=== PATIENT | female | born 1975 | race Caucasian/White ===

== ENCOUNTER → 2024-06-17 | Outpatient (CLI) | payer BC, SELFPAY ==
--- NOTE | 2024-06-17 10:52 | US_ITS ---
STUDY: ULTRASOUND OF THE FEMALE PELVIS - COMPLETE REASON FOR EXAM: Female, 48 years old. EVALUATE LESION ON LEFT CERVIX -- COMPARE TO CT [place] Apr LMP: Unknown. TECHNIQUE: Transvaginal TECHNICAL QUALITY: Adequate. COMPARISON: None. FINDINGS: The uterus is anteverted and is in a midline position. The uterus measures 5.5 cm x 3.9 cm x 3.2 cm. There are 2 nabothian cysts of the cervix. The endometrium measures 2.8 mm in thickness, and is hyperechoic. There is no demonstrated endometrial mass. Heterogeneous appearance of the myometrium in keeping with fibroid change. I.U.D. - The patient does not have an I.U.D. The right ovary is visualized. The right ovary measures 2.3 cm x 2.1 cm x 1.5 cm. There is no right ovarian cyst or ovarian mass. There is no visualized right adnexal mass or complex lesion. There is normal arterial and normal venous vascularity. The left ovary is visualized. The left ovary measures 1.8 cm x 1.2 cm x 1.2 cm. There is no left ovarian cyst or ovarian mass. There is no visualized left adnexal mass or complex lesion. There is normal arterial and normal venous vascularity. There is no fluid in the cul-de-sac. US/Transvaginal Non- IMPRESSION: Fibroid change of the uterus. There are 2 nabothian cysts in the uterine cervix the larger measures 1.9 cm x 1.8 cm x 1.7 cm Electronically Signed: Fadi Edwards MD at 12:16 EST ,
== END | disposition home or self-care (01) ==
PROVIDERS: Referring Provider Internal Medicine Hematology & Oncology; Visit Provider Internal Medicine Hematology & Oncology
DX: C50.411 Malignant neoplasm of upper-outer quadrant of right female breast (principal); N88.9 Noninflammatory disorder of cervix uteri, unspecified; Z17.0 Estrogen receptor positive status [ER+]
CPT/HCPCS: 76830

== ENCOUNTER → 2024-06-23 | Outpatient (CLI) | payer BC, SELFPAY ==
[2024-06-30 20:07] LABS: HPV APTIMA, High Risk Positive (Negative); HPV Genotype 16, Aptima Negative (Negative); HPV Genotype 18,45 Aptima Negative (Negative)
== END | disposition home or self-care (01) ==
LOC: BWCLAB 10:29
PROVIDERS: Referring Provider Obstetrics & Gynecology; Visit Provider Obstetrics & Gynecology
DX: Z12.4 Encounter for screening for malignant neoplasm of cervix (principal)
CPT/HCPCS: 87624; 88175; G0145

== ENCOUNTER → 2024-07-01 | Outpatient (CLI) | payer BC, SELFPAY ==
--- NOTE | 2024-07-01 09:17 | CT_ITS ---
INDICATION: HISTORY OF LUNG NODULE -- PLEASE COMPARE TO CT DONE AT [facility] ON 04/22/2024 EXAMINATION: CT CHEST WITH CONTRAST - CT Chest W/ Contrast Injection TECHNIQUE: Helically acquired images were obtained of the chest following IV contrast. A radiation dose optimization technique was used for this scan. IV Contrast dosage and agent: COMPARISON: 04/22/2024 FINDINGS: LUNGS, PLEURA AND LARGE AIRWAYS: No masses, consolidation, or edema. No pleural effusion or thickening. No pneumothorax. THYROID: No thyroid lesions. HEART AND PERICARDIUM: Heart size is normal. No pericardial effusion. VESSELS: Thoracic aorta is not dilated. No aortic dissection. No obvious central pulmonary embolism although this study was not performed with the pulmonary embolism protocol. MEDIASTINUM AND IDRIS: No mediastinal or hilar adenopathy. Esophagus is unremarkable. No hiatal hernia. UPPER ABDOMEN: No acute pathology. BONES: No suspicious lytic or blastic abnormality. CT/Chest WITH Contrast IMPRESSION: Negative contrast enhanced CT of the chest. Electronically Signed: Grover Magaña MD at 11:14 EST ,
== END | disposition home or self-care (01) ==
PROVIDERS: Referring Provider Internal Medicine Hematology & Oncology; Visit Provider Internal Medicine Hematology & Oncology
DX: R91.1 Solitary pulmonary nodule (principal)
CPT/HCPCS: 71260; Q9967

== ENCOUNTER → 2024-09-22 | Outpatient (CLI) | payer BC, SELFPAY ==
--- NOTE | 2024-09-22 13:00 | RAD_ITS ---
PROCEDURE: CHEST PA AND LATERAL 09/22/2024 REASON FOR EXAM: COUGH TECHNIQUE: Frontal and lateral views of the chest. COMPARISON: Lead Simulation Modeling Engineer from the chest CT of 07/01/2024. RAD/Chest PA and Lateral IMPRESSION: Left subclavian central venous catheter with port seen, with tip projecting ove r the SVC. No pleural effusion or pneumothorax is noted. Lungs appear clear of acute disease. The cardiomediastinal silhouette is within the normal range. No acute osseous change is seen. Reading Location: [id number]
== END | disposition home or self-care (01) ==
LOC: RAD 12:59
PROVIDERS: Referring Provider Nurse Practitioner Family; Visit Provider Nurse Practitioner Family
DX: R05.9 Cough, unspecified (principal)
CPT/HCPCS: 71046

== ENCOUNTER → 2024-09-29 | Outpatient (CLI) | payer BC, SELFPAY ==
--- NOTE | 2024-09-29 16:15 | CER_PTH ---
PATIENT: MELVA MAHAN [facility] U#:[id number] AGE/SX: 49/F ROOM: RE09/29/[address]: Dr. Melva Kidd DO : 1975 BED: DIS: 09/29/2024 SPEC #: [id number] RECD: 09/30/24 10:17 STATUS: ROSINA FORDE #: [id number] STACEY: 09/29/24 16:[address]: Melva Kidd DEPT: SURGICAL PATHOLOGY RECD BY: Nathaniel Dickerson ENTERED: 09/30/24 10:18 SP TYPE: CERV OTHR DR: Dr. Caio Moncada, DO Tissues: A - Endocervical B - Uterine cervix, NOS Procedures: Surgery Specimen Level IV HEADER OPERATION: Colposcopy PRE-OP DIAGNOSIS: HPV+ TISSUE SUBMITTED: A- ECC, B- 12o'clock MICROSCOPIC DIAGNOSIS A. ENDOCERVIX, CURETTAGE: - LOW GRADE RAMIN (MILD DYSPLASIA WITH HPV-CYTOPATHIC EFECT, DALJIT 1). B. CERVIX 12 O'CLOCK, BIOPSY: - LOW GRADE RAMIN (MILD DYSPLASIA WITH HPV-CYTOPATHIC EFECT, DALJIT 1). MICROSCOPIC DESCRIPTION Slides are reviewed. GROSS DESCRIPTION Specimen A-received in formalin labeled, Melva Mahan, and designated ECC, is a scant amount of chakraborty tissue and red-brown mucus that aggregate to 0.6 x 0.6 x 0.2 cm. Tissue submitted entirely for cell block preparation in one cassette. Specimen B-received in formalin labeled, Melva Mahan, and designated 12 o'clock, is a chakraborty smooth irregularly-shaped soft tissue fragment and two wisps of tissue that aggregate to 0.6 x 0.5 x 0.2 cm. Totally submitted in one cassette. [place] 09/30/2024 CPT:11999d0
== END | disposition home or self-care (01) ==
LOC: LABSPEC 16:52
PROVIDERS: Visit Provider Obstetrics & Gynecology
DX: R87.810 Cervical high risk human papillomavirus (HPV) DNA test positive (principal)
CPT/HCPCS: 88305

== ENCOUNTER → 2024-11-06 | Outpatient (CLI) | payer BC, SELFPAY ==
--- NOTE | 2024-11-06 08:30 | BD_ITS ---
PROCEDURE: DEXA BONE DENSITY STUDY 11/06/2024 REASON FOR EXAM: SCREENING FOR OSTEOPOROSIS F, age 49 y/o . TECHNIQUE: DEXA scan of sites with data reported below. Scanner utilized: [employer]. REFERENCE LINKS: ISCD Adult Positions COMPARISON: None FINDINGS: BMD and T-SCORES Lumbar spine: 1.136 g/cm2, T-score 0.8 Levels: L1 through L4 Left femoral neck: 0.738 g/cm2, T-score -1.0 Left total hip: 1.118 g/cm2, T-score 1.4 Right femoral neck: 0.709 g/cm2, T-score -1.3 Right total hip: 1.058 g/cm2, T-score 0.9 The World Health Organization has defined the following categories based on bone density: Normal bone density: T-score equal to or greater than -1.0 Osteopenia: T-score between -1.0 and -2.5 Osteoporosis: T-score equal to or less than -2.5 FRAX (or Comparable) Fracture Risk Assessment: 10 Year Probability of Fracture: Major Osteoporotic Fracture: 3.5% Hip Fracture: 0.3% (Note: FRAX is not to be reported in setting of normal range bone density, osteoporosis on DEXA, known history of osteoporosis, prior osteoporotic hip or vertebral fracture, or for any patient undergoing pharmacological treatment for bone loss.) The National Osteoporosis Foundation (NOF) recommends pharmacological treatment for patients with a FRAX 10-year risk of 3% or higher for a hip fracture, or 20% or higher for a major osteoporotic fracture, to prevent osteoporosis and reduce fracture risk. The patient does not meet the pharmacological treatment recommendations for prevention of osteoporosis. BD/Dexa Bone Density Study IMPRESSION: OSTEOPENIA. Recommend follow-up as clinically warranted. Reading Location: [id number]
== END | disposition home or self-care (01) ==
LOC: OPBD 08:18
PROVIDERS: Referring Provider Nurse Practitioner Family; Visit Provider Nurse Practitioner Family
DX: C50.411 Malignant neoplasm of upper-outer quadrant of right female breast (principal); Z17.0 Estrogen receptor positive status [ER+]
CPT/HCPCS: 77080

== ENCOUNTER 2024-12-02 11:27 | Day surgery (SDC) | payer BC, SELFPAY ==
--- NOTE | 2024-11-25 12:29 | EKG12_ITS ---
Test Reason : PREOP Blood Pressure : */* mmHG Vent. Rate : 79 BPM Atrial Rate : 79 BPM P-R Int : 126 ms QRS Dur : 88 ms QT Int : 362 ms P-R-T Axes : 53 92 16 degrees QTcB Int : 415 ms Normal sinus rhythm Rightward axis Nonspecific T wave abnormality Abnormal ECG Confirmed by GRETA LEVINE, RAMU ([id number]), web editor RICHIE CHACON ([id number]) on 11/26/2024 6:04:04 AM Referred By: Melanie Kidd Confirmed By: RAMU HERNANDES MD
[2024-11-25 13:48] LABS: Hematocrit 37.5 % (37-47); Hemoglobin 12.8 g/dL (12.0-15.0); Mean Corp Hgb Conc 34.1 g/dL (32-36); Mean Corpuscular Hgb 29.8 pg (27.0-32.0); Mean Corpuscular Volume 87.4 fL (81-99); Mean Platelet Vol. 8.5 fl (6.2-12.0); Platelet Count 229 K/mm3 (150-450); RBC Distribution Width CV 12.5 % (11.6-14.6); RBC Distribution Width SD 39.5 fl (35.1-43.9); Red Blood Count 4.29 M/mm3 (4.2-5.4); White Blood Count 3.9 K/mm3 (4.4-11.0)
[2024-11-25 14:00] LABS: ALB/GLOB Ratio 1.6 RATIO (0.9-2.4); AST(SGOT) 22 U/L (<=31); Alanine Aminotransfer ALT/SGPT 16 U/L (<=34); Albumin, Serum 4.1 g/dL (3.5-5.0); Alkaline Phosphatase 92 U/L (35-104); Anion Gap 12 (5-15); BUN 13 mg/dL (4-19); BUN/Creat Ratio 13.6 RATIO (10-20); Calcium,Total 9.4 mg/dL (7.6-11.0); Carbon Dioxide 23.1 mmol/L (21.0-32.0); Chloride 104 mmol/L (98-108); Creatinine, Serum 0.93 mg/dL (0.70-1.20); EST Glomerular Filtration Rate 75 (>60); Globulin 2.6 g/dL (2.2-4.2); Glucose 126 mg/dL (70-99); Potassium 4.2 mmol/L (3.3-5.1); Protein, Total 6.7 g/dL (5.9-8.4); Sodium Level 139 mmol/L (133-145); Total Bilirubin 0.19 mg/dL (0.00-1.30)
--- NOTE | 2024-11-26 08:57 | PAT.ANE_ITS ---
Pre-Assessment Diagnosis/Proposed Procedure Planned Operative Procedure(s): Laparoscopic, Salpingo-oopherectomy Anesthesia History Anesthesia History - production support engineer: Anesthesia History - production support engineer Hx Hospitalization No 11/18/24 09:54 Any Problems With Anesthesia No 11/18/24 09:54 Cholinesterase deficiency No 11/18/24 09:54 You/Your Family Experience No 11/18/24 09:54 fever (hyperthermia) with Relationship Recent Exposure to Contagious Disease Does patient have nerve No 11/18/24 09:54 stimulator Patient instructed to have device shut off --Does patient have Pacemaker or ICD? When Was Last Pacemaker Check QUESTION #4 FULL TEXT: You/Your Family Experience fever (hyperthermia) with Anesthesia Last Oral Intake Last Oral intake: Last Oral Intake NPO since Meds taken in AM with sips of water? Meds patient instructed to take am of surgery PONV PONV - production support engineer: PONV - production support engineer Female Yes 11/18/24 09:54 HX of Motion Sickness No 11/18/24 09:54 HX of N/V After Surgery No 11/18/24 09:54 Non-Smoker No 11/18/24 09:54 Duration of Surgery greater No 11/18/24 09:54 than 60 minutes Number of Risk Factors 1 11/18/24 09:54 PONV Score Low Risk 11/18/24 09:54 Height & Weight Height & Weight: Anesthesia: Height & Weight Height 5 ft 7 in 09/29/24 15:57 Respiratory Assessment Respiratory Assessment - production support engineer: Respiratory Tract Infection Hx - production support engineer Hx Respiratory Tract Infection No 11/18/24 09:54 STOP Sleep Apnea STOP Sleep Apnea - production support engineer: STOP Sleep Apnea - production support engineer Hx Hypertension No 11/18/24 09:54 Hx Sleep Apnea No 11/18/24 09:54 CPAP BIPAP Do you snore loudly (louder No 11/18/24 09:54 than talking or can be heard Do you often feel tired/ No 11/18/24 09:54 fatigued/ sleepy during daytime? Has anyone observed you stop No 11/18/24 09:54 breathing during sleep? STOP Results Negative 11/18/24 09:54 QUESTION #5 FULL TEXT : Do you snore loudly (louder than talking or can be heard through closed doors)? Tobacco Use History Tobacco Use History - production support engineer: Tobacco Use History - production support engineer Tobacco Use Smoking Status Former smoker 11/18/24 09:54 Hx Tobacco Use Yes 11/18/24 09:54 Years Smoking Packs Smoked per Day Smoking Cessation Date was Yes - quit smoking within 15 11/18/24 09:54 within the last 15 years years Hx Smoking Cessation Date Hx Smoking Cessation Counseling Hematologic Medial History Hematologic Hx - production support engineer: Hematologic Medical Hx - physical security manager Hx of Blood Transfusion No 11/18/24 09:54 Hx of Transfusion in last 3 No 11/18/24 09:54 Months Date of Last Transfusion (if within last 3 months) Ever experience any problems No 11/18/24 09:54 with transfusion(s)? Specify any problems Hx of Preganancy in last 3 No 11/18/24 09:54 Months Nurse Filling Out Transfusion [facility] 11/18/24 09:54 & Questions: Date: 11/18/24 11/18/24 09:54 Time: 10:04 11/18/24 09:54 Patient unable to answer at this time (ie. confused, unrespo /Reproduction History /Reproductive History - production support engineer: /Reproductive Hx- production support engineer Hx Now No 11/18/24 09:54 Gestational Age (in weeks): EDC: Hx Hx Para Hx Section SAB No 09/29/24 16:01 PFSH Medical History Wears glasses Cancer Discoloration of skin History of IBS Gastric reflux Former smoker History of echocardiogram History of stress test Post-menopausal Cough Encounter for chemotherapy management Diarrhea due to drug Anemia CINV (chemotherapy-induced nausea and vomiting) Encounter for education Leukopenia Sprain of right foot Sleep walking Restless leg IBS (irritable bowel syndrome) Hyperglycemia Hypersomnia Gestational diabetes HPV in female COVID DVT (deep venous thrombosis) Depression Anxiety Breast cancer Home Medications ?Medication ?Instructions ?Recorded ?Last Taken ?Type aspirin 81 mg tablet,delayed 81 mg PO QHS 03/28/24 Unk nown History release bupropion HCl 150 mg tablet,12 hr 150 mg PO QHS Unknown History sustained-release ibuprofen 200 mg capsule 200 mg PO Q6H PRN pain 03/28 Unknown History sertraline 50 mg tablet 50 mg PO QHS 03/28/24 Unknow n History gabapentin 300 mg capsule 300 mg PO QHS #90 caps 06/23 Unknown Rx lidocaine-prilocaine 2.5 %-2.5 % 1 applic topical ONCE PRN port 06/30/24 Unknown Rx topical cream access 30 days #30 grams ondansetron 8 mg disintegrating 8 mg PO Q8H PRN nausea and 06/30/24 Unknown Rx tablet vomiting #30 tabs prochlorperazine maleate 10 mg 10 mg PO Q6H PRN nausea and 06/30/24 Unknown Rx tablet vomiting #30 tabs omeprazole magnesium 20 mg 20 mg PO QDAY PRN indigesti on 11/18/24 Unknown History tablet,delayed release (Prilosec OTC) Allergy/AdvReac Type Severity Reaction Status Date / Time ketorolac (From Toradol) AdvReac Mild Nausea Verified 11/25/24 13:07 Family History Aunt Breast cancer Grandmother Breast cancer Son Cerebral palsy Surgical History History of lumpectomy History of left ventricular assist device (LVAD) History of cervical biopsy Social History household members: significant other and children number of children: 1 current occupational status: employed 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 - Tuan Audit: Pertinent Findings Pertinent Findings EKG Perinent findings: 11/25/2024. Normal sinus rhythm 79 bpm. Nonspecific T wave abnormality. Recommendation Anesthesia Recommendation Anesthesia recommendation: OPTIMIZED for anesthesia
[2024-12-02] VITALS (10 sets, daily range): BP systolic 121–136; BP diastolic 66–76; PULSE 60–71; RESP 16; TEMP 36.2–36.4; O2SAT 96–100; BMI 42.3
[2024-12-02] MEDS: Lactated Ringers 1,000 ML 40 ML IV (12:13)
[2024-12-02] MEDS: Enoxaparin 40 MG/0.4 ML Syringe SC (12:14)
[2024-12-02] MEDS: Acetaminophen 500 MG Tablet 1000 MG PO (12:14)
[2024-12-02] MEDS: Gabapentin 600 MG Tablet PO (12:37)
--- NOTE | 2024-12-02 12:37 | PRE.ANES_ITS ---
ASA Classification* ASA Classification ASA Classification: 3 Assessment & Plan Anesthesia* Anesthesia Assessment Anesthesia Assessment: Discussed sedation and/or anesthesia options, risks, benefits, and alternatives with patient/parents/legal guardian/POA. Questions invited. The patient/parents/legal guardian/POA seems to understand and agrees to proceed with anesthesia plan. Reviewed the physical assessment, medical history, allergy history and patient home medications list prior to surgery/procedure/anesthetic and documented any changes. Performed airway and anesthesia risk assessments. Anesthesia Type Anesthesia Type: General History Source History Obtained from:: Patient and Chart Anesthesia Focused Assessment* Temperature: 97.6 F Pulse Rate: 71 Blood Pressure: 122/69 Respiratory Rate: 16 Pulse Ox: 96 Oxygen Delivery Method: Room Air Airway Assessment Mouth opens: >3 cm Mallampati Score: III Teeth Condition: Loose (Patient has a loose #27 tooth.) and Missing (Missing a left upper molar.) Neck Range of motion (ROM): Full ROM Focused Labs Anesthesia Preop lab: CBC WBC 3.9 K/mm3 (4.4-11.0) L 11/25/24 13:32 11/25/24 RBC 4.29 M/mm3 (4.2-5.4) 11/25/24 13:32 11/25/24 Hgb 12.8 g/dL (12.0-15.0) 11/25/24 13:32 11/25/24 Hct 37.5 % (37-47) 11/25/24 13:32 11/25/24 Plt Count 229 K/mm3 (150-450) 11/25/24 13:32 11/25/24 CHEMISTRY Potassium 4.2 mmol/L (3.3-5.1) 11/25/24 13:32 11/25/24 Sodium 139 mmol/L (133-145) 11/25/24 13:32 11/25/24 Magnesium 2.0 mg/dL (1.5-2.2) 09/22/24 10:30 09/22/24 Phosphorus 3.4 mg/dL (2.7-4.5) 09/08/24 07:45 09/08/24 BUN 13 mg/dL (4-19) 11/25/24 13:32 11/25/24 Creatinine 0.93 mg/dL (0.70-1.20) 11/25/24 13:32 11/25/24 Glucose 126 mg/dL (70-99) H 11/25/24 13:32 11/25/24 COAG Pre-Assessment Diagnosis/Proposed Procedure Planned Operative Procedure(s): Laparoscopic, Salpingo-oopherectomy Anesthesia History Anesthesia History - public finance specialist: Anesthesia History - public finance specialist Hx Hospitalization No 11/18/24 09:54 Any Problems With Anesthesia No 11/18/24 09:54 Cholinesterase deficiency No 11/18/24 09:54 You/Your Family Experience No 11/18/24 09:54 fever (hyperthermia) with Relationship Recent Exposure to Contagious No 12/02/24 12:16 Disease Does patient have nerve No 11/18/24 09:54 stimulator Patient instructed to have device shut off --Does patient have Pacemaker No 12/02/24 12:16 or ICD? When Was Last Pacemaker Check QUESTION #4 FULL TEXT: You/Your Family Experience fever (hyperthermia) with Anesthesia Last Oral Intake Last Oral intake: Last Oral Intake NPO since 21:00 12/02/24 12:16 Meds taken in AM with sips of No 12/02/24 12:16 water? Meds patient instructed to take am of surgery PONV PONV - public finance specialist: PONV - public finance specialist Female Yes 11/18/24 09:54 HX of Motion Sickness No 11/18/24 09:54 HX of N/V After Surgery No 11/18/24 09:54 Non-Smoker No 11/18/24 09:54 Duration of Surgery greater No 11/18/24 09:54 than 60 minutes Number of Risk Factors 1 11/18/24 09:54 PONV Score Low Risk 11/18/24 09:54 Height & Weight Height & Weight: Anesthesia: Height & Weight Height 5 ft 7 in 12/02/24 12:16 Weight: 122.5 kg 12/02/24 12:16 Body Mass Index (BMI) 42.3 12/02/24 12:16 Respiratory Assessment Respiratory Assessment - public finance specialist: Respiratory Tract Infection Hx - public finance specialist Hx Respiratory Tract Infection No 11/18/24 09:54 STOP Sleep Apnea STOP Sleep Apnea - public finance specialist: STOP Sleep Apnea - public finance specialist Hx Hypertension No 11/18/24 09:54 Hx Sleep Apnea No 11/18/24 09:54 CPAP BIPAP Do you snore loudly (louder No 11/18/24 09:54 than talking or can be heard Do you often feel tired/ No 11/18/24 09:54 fatigued/ sleepy during daytime? Has anyone observed you stop No 11/18/24 09:54 breathing during sleep? STOP Results Negative 11/18/24 09:54 QUESTION #5 FULL TEXT : Do you snore loudly (louder than talking or can be heard through closed doors)? Tobacco Use History Tobacco Use History - public finance specialist: Tobacco Use History - public finance specialist Tobacco Use Smoking Status Former smoker 11/18/24 09:54 Hx Tobacco Use Yes 11/18/24 09:54 Years Smoking Packs Smoked per Day Smoking Cessation Date was Yes - quit smoking within 15 11/18/24 09:54 within the last 15 years years Hx Smoking Cessation Date Hx Smoking Cessation Counseling Hematologic Medial History Hematologic Hx - public finance specialist: Hematologic Medical Hx - presentation manager Hx of Blood Transfusion No 11/18/24 09:54 Hx of Transfusion in last 3 No 11/18/24 09:54 Months Date of Last Transfusion (if within last 3 months) Ever experience any problems No 11/18/24 09:54 with transfusion(s)? Specify any problems Hx of Preganancy in last 3 No 11/18/24 09:54 Months Nurse Filling Out Transfusion [facility] 11/18/24 09:54 & Questions: Date: 11/18/24 11/18/24 09:54 Time: 10:04 11/18/24 09:54 Patient unable to answer at this time (ie. confused, unrespo /Reproduction History /Reproductive History - public finance specialist: /Reproductive Hx- public finance specialist Hx Now No 11/18/24 09:54 Gestational Age (in weeks): EDC: Hx Hx Para Hx Section SAB No 11/17/24 15:23 Active Medications Active Medications: Current Medications Generic Name Dose Route Start Last Admin Trade Name Freq PRN Reason Stop Dose Admin Acetaminophen 1,000 mg 12/02/24 12:55 12/02/24 12:14 Acetaminophen 500 Mg Tablet PO 12/02/24 12:56 1,000 mg PREOP ONE Administration Enoxaparin Sodium 40 mg 12/02/24 12:55 12/02/24 12:14 Enoxaparin 40 Mg/0.4 Ml Syringe SC 12/02/24 12:56 40 mg PREOP ONE Administration Gabapentin 600 mg 12/02/24 12:55 Gabapentin 600 Mg Tablet PO 12/02/24 12:56 PREOP ONE Lactated Ringer's 1,000 mls @ 40 mls/hr 12/02/24 12:55 12/02/24 12:13 IV 40 mls/hr .Q25H CHARLES Administration Cefazolin Sodium 3 gm/ Sodium 115 mls @ 150 mls/hr 12/02/24 12:55 Chloride IV 12/02/24 13:40 INTRAOP ONE Lactated Ringer's 1,000 mls @ 15 mls/hr 12/02/24 11:45 IV .Q48H CHARELS Insulin Human Lispro 0 unit 12/02/24 12:55 Insulin Lispro 100 Unit/Ml Insuln.Pen SC 12/02/24 18:00 Q4H PRN PRN BG >/= 180, SEE PROTOCOL Protocol PFSH Medical History Wears glasses Cancer Discoloration of skin History of IBS Gastric reflux Former smoker History of echocardiogram History of stress test Post-menopausal Cough Encounter for chemotherapy management Diarrhea due to drug Anemia CINV (chemotherapy-induced nausea and vomiting) Encounter for education Leukopenia Sprain of right foot Sleep walking Restless leg IBS (irritable bowel syndrome) Hyperglycemia Hypersomnia Gestational diabetes HPV in female COVID DVT (deep venous thrombosis) Depression Anxiety Breast cancer Home Medications ?Medication ?Instructions ?Recorded ?Last Taken ?Type aspirin 81 mg tablet,delayed 81 mg PO QHS 03/28/24 History release bupropion HCl 150 mg tablet,12 hr 150 mg PO QHS 12/01/24 History sustained-release ibuprofen 200 mg capsule 200 mg PO Q6H PRN pain 03/28 Unknown History sertraline 50 mg tablet 50 mg PO QHS 03/28/24 History gabapentin 300 mg capsule 300 mg PO QHS #90 caps 06/2312/01/24 Rx lidocaine-prilocaine 2.5 %-2.5 % 1 applic topical ONCE PRN port 06/30/24 Unknown Rx topical cream access 30 days #30 grams ondansetron 8 mg disintegrating 8 mg PO Q8H PRN nausea and 06/30/24 Unknown Rx tablet vomiting #30 tabs prochlorperazine maleate 10 mg 10 mg PO Q6H PRN nausea and 06/30/24 Unknown Rx tablet vomiting #30 tabs omeprazole magnesium 20 mg 20 mg PO QDAY PRN indigesti on 11/18/24 Unknown History tablet,delayed release (Prilosec OTC) Allergy/AdvReac Type Severity Reaction Status Date / Time ketorolac (From Toradol) AdvReac Mild Nausea Verified 12/02/24 12:11 Family History Aunt Breast cancer Grandmother Breast cancer Son Cerebral palsy Surgical History History of lumpectomy History of left ventricular assist device (LVAD) History of cervical biopsy Social History household members: significant other and children number of children: 1 current occupational status: employed 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 - Tuan Review of Systems (Anesthesia) ROS Narrative System reviewed and no additional complaints, except as documented.
--- NOTE | 2024-12-02 12:55 | FALS_PTH ---
PATIENT: MELVA MAHAN LOC: [facility] U#:[id number] AGE/SX: 49/F ROOM: RE12/02/[address]: Dr. Melva Kidd DO : 1975 BED: DIS: 12/02/2024 SPEC #: [id number] RECD: 12/02/24 16:46 STATUS: ROSINA EULA #: [id number] STCAEY: 12/02/24 12:[address]: Melva Kidd DEPT: SURGICAL PATHOLOGY RECD BY: Nathaniel Dickerson ENTERED: 12/03/24 08:57 SP TYPE: FALL TUBES OTHR DR: Dr. Caio Moncada, Tissues: A - Fallopian tube Procedures: Surgery Specimen Level II HEADER OPERATION: Laparoscopic, salping-oopherectomy PRE-OP DIAGNOSIS: Breast cancer, right breast TISSUE SUBMITTED: A- Bilateral fallopian tubes and bilateral ovaries MICROSCOPIC DIAGNOSIS A. Bilateral fallopian tubes and ovaries, status post breast cancer, bilateral salpingo-oophorectomy: * Ovarian benign simple cysts consistent with serous cyst and mesothelial inclusion cysts. * Unremarkable fallopian tubes. MICROSCOPIC DESCRIPTION Slides are reviewed. GROSS DESCRIPTION A. Received in formalin in a container labeled with the patient's name, date of , and bilateral fallopian tubes, bilateral ovaries are 2 unoriented, fimbriated fallopian tubes with attached ovaries. The first fimbriated fallopian tube is 3.3 cm in length by 0.7 cm in diameter. The serosa is purple-copeland, smooth and glistening with an unremarkable fimbriated end. Serial sections reveal a pinpoint lumen. The attached ovary is 3.0 g and 2.4 x 1.7 x 1.5 cm. The outer surface is pink-copeland, convoluted; inked black. Serial sections reveal a 0.5 x 0.5 x 0.5 cm cystic structure filled with thin serous fluid. The inner lining is smooth and glistening and no papillary excrescences are identified. The remaining parenchyma is chakraborty-pink and softened. The second fimbriated fallopian tube is 3.6 cm in length by 0.5 cm in diameter with purple-copeland, smooth and glistening serosa and an unremarkable fimbriated end. Serial sections reveal a pinpoint lumen. The attached ovary is 2.5 g and 2.3 x 1.8 x 1.2 cm. The outer surface is chakraborty-pink, convoluted; inked green. Serial sections reveal a 1.0 x 0.8 x 0.3 cm cystic structure filled with thin serous fluid. The inner lining is smooth and glistening and no papillary excrescences are identified. The remaining parenchyma is chakraborty-pink and softened. The specimen is submitted entirely as follows:A1-2. First fimbriated fallopian tubeA3-5. First ovaryA6-7. Second fimbriated fallopian tubeA8-10. Second ovary [facility] 12-03-2024 CPT: 00721
--- NOTE | 2024-12-02 13:52 | HP.PCM_ITS ---
History and Physical Date of Admission: 12/02/24 Intake Vital Signs 09/29/2514:57 11/03/2513:10 11/17/2514:21 11/17/2514:23 Height 5 ft 7 in 5 ft 7 in 5 ft 7 in 5 ft 7 in Weight: 275 lb 9 oz 276 lb 8 oz BMI 43.1 43.2 BP 128/84 H 118/85 H Blood Pressure Location Lt radial Position Sitting Respiration 18 Pulse 79 Pulse Source Monitor Temp 97.8 F Temperature Source Temporal Artery Pulse Oximetry (%) 97 Oxygen Delivery Method room air Intake Visit Reasons: BSO Stream Control Officer Required: No Is patient in pain?: No Allergies ketorolac (From Toradol) Adverse Reaction (Mild, Verified 11/17/24 15:21) Nausea Medications ?Medication ?Instructions ?Recorded ?Confirmed ?Type aspirin 81 mg tablet,delayed 81 mg PO QDAY 03/28/24 11/17/24 History release bupropion HCl 150 mg tablet,12 hr 150 mg PO QDAY 03/28/24 11/17/24 History sustained-release ibuprofen 200 mg capsule 200 mg PO Q6H PRN 03/28/24 11/17/24 Hist ory sertraline 50 mg tablet 50 mg PO QDAY 03/28/24 11/17/24 History gabapentin 300 mg capsule 300 mg PO QHS #90 caps 06/23/24 11/17/24 Rx dexamethasone 4 mg tablet 4 mg PO DAILY #40 tabs 06/30/24 11/17/24 Rx lidocaine-prilocaine 2.5 %-2.5 % 1 applic topical ONCE PRN port 06/30/24 11/17/24 Rx topical cream access 30 days #30 grams omeprazole magnesium 20 mg 20 mg PO QDAY #30 tabs 06/30/24 11/17/24 Rx tablet,delayed release (Prilosec OTC) ondansetron 8 mg disintegrating 8 mg PO Q8H PRN nausea and 06/30/2411/06 Rx tablet vomiting #30 tabs prochlorperazine maleate 10 mg 10 mg PO Q6H PRN nausea and 06/30/2407/02 Rx tablet vomiting #30 tabs potassium phosphate, monobasic 500 1,000 mg (2 x 500 mg) PO BID #10 12/30/2 4 11/17/24 Rx mg soluble tablet tabs Post menopausal: No Patient : No : No PFSH Medical History Cough Encounter for chemotherapy management Diarrhea due to drug Anemia CINV (chemotherapy-induced nausea and vomiting) Encounter for education Leukopenia Sprain of right foot Sleep walking Restless leg IBS (irritable bowel syndrome) Hyperglycemia Hypersomnia Gestational diabetes HPV in female COVID DVT (deep venous thrombosis) Depression Anxiety Breast cancer Surgical History History of cervical biopsy Family History Aunt Breast cancerGrandmother Breast cancerSon Cerebral palsy Social History household members: significant other and children number of children: 1 current occupational status: employed 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 She was found to be clinical stage IIA (T2, N0, M0) invasive ductal cancer of the right breast, ER positive (71 to 80%, moderate), NM positive (61 to 70%, moderate) HER2 negative by IHC (0), overall grade 1. Patient is status post partial mastectomy with sentinel lymph node biopsy April 2024 followed by further excision to achieve a negative margin May 2024.She is status post radiation and chemotherapy. She does have a h/o unprovoked DVT and family history of factor V leiden def. She was found to be negative for this and only pos for MTHFR. History 3 Elective abortions 1 Hx Para 1 Spontaneous abortions 1 Hx # Term Pregnancies Ectopic pregnancies Hx # Pregnancies Multiple births # of living children 1 Past Pregnancies Del. Date Name GA/Weeks Outcome Route Bth Weight Infant Gen Labor Lgth Anesthesia Del Locatn Provider FOB Unknown Juan 2014 ROS Const ROS Unobtainable: All systems reviewed & are unremarkable except as noted in H Resp Resp: Reports system reviewed and no additional complaints, except as documented; Denies cough GI GI: Reports as per HPI Psych Psych: Reports system reviewed and no additional complaints, except as documented Exam Const General: cooperative, healthy appearing, comfortable and no acute distress Resp Effort & Inspection: normal respiratory effort Skin General: no rashes or lesions noted Psych Appearance: grossly normal Speech and Movement: speech and movement normal Coding Level of Care Code Off vis,est,level 4 Diagnoses Malignant neoplasm of upper-outer quadrant of right breast in female, estrogen receptor positive C50.411; Z17.0 Breast location: upper outer quadrant of breast Estrogen receptor status: positive Patient sex: female Assessment and Plan Assessment and Plan (1) Breast cancer, right breast: Status: Acute Qualifiers: Breast location: upper outer quadrant of breast Estrogen receptor status: positive Patient sex: female Qualified Code(s): C50.411 - Malignant neoplasm of upper-outer quadrant of right female breast; Z17.0 - Estrogen receptor positive status [ER+] Plan: After discussing the patient's diagnosis and treatment plan options, patient wishes to proceed with surgical management. I have discussed with the patient the risks, benefits, and alternatives of the procedure which include but are not limited to risks of anesthesia, bleeding, infection, possible damage to bowel, bladder, or surrounding vasculature which could lead to additional surgery to evaluate any complications. Patient agrees to procedure and wishes to proceed. ACOG/uptodate references given for additional information regarding procedure. plan for laparoscopic BSO with pre and post lovenox treatment.
--- NOTE | 2024-12-02 13:52 | DCINST_ITS ---
Discharge Instructions Diet Discharge Diet: No restrictions DC O2, CPAP, BIPAP needs Home O2 Discharge instructions: No Dressing / Incision Discharge Activity: Return to Normal Activity, May Not Drive (for two weeks or while taking narcotic pain medications.), May Shower and May Take a Tub Bath (in 7 days) May resume sexual activity in: 1 week Weight Bearing Status: Full weight bearing Dressing / Incision Call your doctor if you observe: Using more than 1 pad per hour, Shortness of breath, Chest pain and Uncontrolled pain Suture Line Care: Avoid Pulling/Pushing and Avoid Pinching/Bending Remove Dressing in: 1 week (if present) Cleanse incision/area with: Soap & Water and Keep Dressing Clean & Dry Follow Up Care Please Follow Up With: Melanie Kidd DO When: Call to make an appointment with your doctor for a follow up incision check in 1-2 weeks. Test Results: Test results from this visit will be discussed in further detail at your follow- up appointment, if applicable. Discharge Plan Admission Primary Reason for Your Visit: laparoscopic bilateral salpingectomy Attending Provider: Melanie Kidd Primary Care Provider: Caio Moncada Instructions Print Language: Citizen Of [place] Discharge Orders/Prescriptions Prescriptions: New enoxaparin [Lovenox] 40 mg/0.4 mL syringe 40 mg subcut DAILY 10 Days Qty: 4 0RF ibuprofen 800 mg tablet 800 mg PO Q8H PRN (Reason: pain) Qty: 30 0RF Continued aspirin 81 mg tablet,delayed release (DR/EC) 81 mg PO QHS bupropion HCl 150 mg tablet sustained-release 12 hr 150 mg PO QHS ibuprofen 200 mg capsule 200 mg PO Q6H PRN (Reason: pain) sertraline 50 mg tablet 50 mg PO QHS gabapentin 300 mg capsule 300 mg PO QHS Qty: 90 3RF lidocaine-prilocaine 2.5-2.5 % cream 1 applic topical ONCE PRN (Reason: port access ) 30 Days Qty: 30 2RF ondansetron 8 mg tablet,disintegrating 8 mg PO Q8H PRN (Reason: nausea and vomiting) Qty: 30 2RF prochlorperazine maleate 10 mg tablet 10 mg PO Q6H PRN (Reason: nausea and vomiting) Qty: 30 2RF omeprazole magnesium [Prilosec OTC] 20 mg tablet,delayed release (DR/EC) 20 mg PO QDAY PRN (Reason: indigestion) Other Ambulatory Orders: 12 Lead EKG (Routine) Timeframe: [id number] Location: None Selected Ordered By: Dr. Melanie Kidd Referrals / Follow Up: Caio Moncada DO [Primary Care Provider] - Disposition Disposition (needs filled in before D/C Order can be placed): Home, Self Care
[2024-12-02] MEDS: Bupivacaine Mpf 0.5% 30 ML VIAL (14:42)
--- NOTE | 2024-12-02 14:44 | PCM.OPRPT ---
Problems Associated Problem List Diagnoses (1) Breast cancer, right breast: Multi Select Codes Urinary/Genital Urinary/Genital CPT Codes: 21232 Laproscopic BS/O Operative Report (Standard) Operative Information Date of Procedure: 12/02/24 Pre-Operative Diagnosis: right breast cancer Post-Operative Diagnosis: right breast cancer Surgery/Procedure Performed: laparoscopic bilateral salpingo-oophorectomy manager telemarketing: Yes Operations Support Analyst: Pritesh Coleman Tasks completed by curatorial assistant: Closing, Trocar and Other (holding and operating the camera ) Additional program services assistant?: No Type of Anesthesia: General RN Documented Start/Stop Times: Operation Date: 12/02/24 12:55 Case Time Into Pre-Op 12/02/24 11:30 Out of Pre-Op 12/02/24 13:56 Anesthesia Start 12/02/24 14:01 Into Room 12/02/24 14:01 Procedure Start 12/02/24 14:20 Procedure Start Time: 14:20 Procedure Stop Time: 14:52 Select all DRAINS/GRAFTS/IMPLANTS that apply: None Estimated Blood Loss: 5 cc Specimen collected: Yes Description of specimen(s) removed: bilateral ovaries and fallopian tubes Description of surgery: tient was taken in the operating room and was placed under general anesthesia was prepped and draped in normal sterile fashion in the dorsal lithotomy position. Bladder was drained of clear urine and SCDs were on preoperatively. Uterus was sounded and a uterine manipulator was placed after dilating. Attention was then paid to the abdominal portion of the procedure and the umbilicus was elevated with towel clamps and injected with Marcaine and after a 12 mm incision was made and the visport was used to insert a 5 mm laparoscopic port site into the abdomen. The abdomen was insufflated with CO2 gas and a 5 mm left lower quadrant trocar was placed under direct visualization. a suproapubic minigrasper was also inserted under direct visualization. The Uterus was well visualized and bilateral fallopian tubes and ovaries were identified and the infundibulopelvic ligaments were transected across using the LigaSure device followed by transecting across the IP ligament and ovarian ligament as well as the mesosalpinx of the fallopian tubes. The tubes and ovaries were removed without complication. Excellent hemostasis was noted. The specimens were placed in a 5 mm endocatch bag and removed through the left lower quadrant port site by extending the incision slightly. Liver and upper abdomen were visualized notably within normal limits and no other gross abnormalities were seen in the abdomen. A william-Thomason suture closure device was used to close the fascia with a 1-0 vicryl. All instruments removed from the abdomen after gas was desufflated. Port sites were closed with 3-0 Monocryl Steri's and op sites were applied. All instruments removed from the vagina and patient was awoken and taken recovery in stable condition. Surgical Findings: normal fallopian tubes and ovaries Complications Complications: No Admit VTE Documentation VTE Present on Admission: Yes VTE Mechan Device Prophylaxis: [facility] [place] Prophylaxis ordered?: Yes
--- NOTE | 2024-12-02 15:08 | PCM.POST.ANE ---
Anesthesia: Postop Eval I Current Vital Signs Temperature: 97.6 F Pulse Rate: 67 Blood Pressure: 136/70 Respiratory Rate: 16 Pulse Ox: 97 Oxygen Delivery Method: Simple Mask Oxygen Flow Rate (L/min): 6 Assessment Airway patent: Yes Spontaneous unlabored respirations: Yes Mental status: Awake and Calm nausea: No Vomiting: No Anesthesia Complication: No Fluid Hydration Crystalloid volume administer (ml): 600 Total IV fluid infused: 600 Progress Note Anesthesia document: Postop Eval 1 completed: Yes
--- NOTE | 2024-12-02 20:44 | POSTOPAN2_ITS ---
Anesthesia Postop Eval I Sum Postop Eval Completion status Anesthesia document: Postop Eval 1 completed: Yes Anesthesia Postop Eval I Summary Anesthesia Postop Eval I Summary: Anesthesia Postop Eval I: Assessment Summary Airway patent Yes 12/02/24 15:09 STEAM PRESS OPERATOR.MEDM Spontaneous unlabored Yes 12/02/24 15:09 STEAM PRESS OPERATOR.MEDM respirations Mental status Awake,Calm 12/02/24 15:09 STEAM PRESS OPERATOR.MEDM nausea No 12/02/24 15:09 STEAM PRESS OPERATOR.MEDM Vomiting No 12/02/24 15:09 STEAM PRESS OPERATOR.MEDM Anesthesia Postop Eval I: Fluid Summary Crystalloid volume administer 600 12/02/24 15:09 STEAM PRESS OPERATOR.MEDM (ml) Colloids volume administered ( ml) Blood Product volume administered (ml) Total IV fluid infused 600 12/02/24 15:09 STEAM PRESS OPERATOR.MEDM Anesthesia Postop Eval I: Summary Notes Anesthesia Complication No 12/02/24 15:09 STEAM PRESS OPERATOR.MEDM Anesthesia Complication Comment: Post-operative progress note Anesthesia: Postop Eval II Evaluation Mental status: Awake and Calm Pain Level: 1 nausea: No Vomiting: No Complications Anesthesia Complication: No
--- NOTE | 2024-12-02 20:44 | PCM.POSTANE2 ---
Anesthesia Postop Eval I Sum Postop Eval Completion status Anesthesia document: Postop Eval 1 completed: Yes Anesthesia Postop Eval I Summary Anesthesia Postop Eval I Summary: Anesthesia Postop Eval I: Assessment Summary Airway patent Yes 12/02/24 15:09 TECHNOLOGY METHODOLOGY CONSULTANT.MEDM Spontaneous unlabored Yes 12/02/24 15:09 TECHNOLOGY METHODOLOGY CONSULTANT.MEDM respirations Mental status Awake,Calm 12/02/24 15:09 TECHNOLOGY METHODOLOGY CONSULTANT.MEDM nausea No 12/02/24 15:09 TECHNOLOGY METHODOLOGY CONSULTANT.MEDM Vomiting No 12/02/24 15:09 TECHNOLOGY METHODOLOGY CONSULTANT.MEDM Anesthesia Postop Eval I: Fluid Summary Crystalloid volume administer 600 12/02/24 15:09 TECHNOLOGY METHODOLOGY CONSULTANT.MEDM (ml) Colloids volume administered ( ml) Blood Product volume administered (ml) Total IV fluid infused 600 12/02/24 15:09 TECHNOLOGY METHODOLOGY CONSULTANT.MEDM Anesthesia Postop Eval I: Summary Notes Anesthesia Complication No 12/02/24 15:09 TECHNOLOGY METHODOLOGY CONSULTANT.MEDM Anesthesia Complication Comment: Post-operative progress note Anesthesia: Postop Eval II Evaluation Mental status: Awake and Calm Pain Level: 1 nausea: No Vomiting: No Complications Anesthesia Complication: No
== END 2024-12-02 16:24 | disposition home or self-care (01) ==
LOC: SDC 11:27 → AC 11:28
PROVIDERS: Referring Provider Obstetrics & Gynecology; Visit Provider Obstetrics & Gynecology
PROC: (CPT 58661; principal; 2024-12-02 12:40)
DX: C50.411 Malignant neoplasm of upper-outer quadrant of right female breast (principal); N83.209 Unspecified ovarian cyst, unspecified side; Z92.3 Personal history of irradiation; Z86.16 Personal history of COVID-19; Z86.718 Personal history of other venous thrombosis and embolism; Z79.82 Long term (current) use of aspirin; Z79.899 Other long term (current) drug therapy; Z87.891 Personal history of nicotine dependence
CPT/HCPCS: 58661; 00840; 36415; 80053; 85027; 86850; 86900; 86901; 88302; 93005; J2405

== ENCOUNTER → 2025-02-17 | Outpatient (CLI) | payer BC, SELFPAY ==
--- NOTE | 2025-02-17 08:55 | BI_ITS ---
EXAM: DIAG MAMM W/CAD, BILAT; BILAT BRST PARISA STAND ALONE 02/17/2025 CLINICAL HISTORY: 49-year-old female with history of right breast cancer, status post chemotherapy and radiation, currently on anastrozole presents for follow-up. History of benign left breast biopsy. TECHNIQUE: DIAG MAMM W/CAD, BILAT; BILAT BRST PARISA STAND ALONE. COMPARISON: Prior exam(s) dated 03/03/2024, 02/14/2024. FINDINGS: TISSUE DENSITY: There are scattered areas of fibroglandular density. Bilateral Breast Mammographic Findings: There are new postsurgical and post radiation changes, including diffuse right breast skin thickening and increased trabeculation, in the right breast. Otherwise, there are no suspicious findings in the right breast. There is a mass with associated biopsy marker clip in the upper-outer left breast. Otherwise, there are no suspicious findings in the left breast. BI/DIAG MAMM W/CAD, BILAT IMPRESSION: Postsurgical and post therapeutic changes in the right breast are benign. There is no evidence of malignancy in either breast. OVERALL FINAL ASSESSMENT BI-RADS 2: BENIGN RECOMMENDATION: OTHER. Bilateral diagnostic mammogram in 1 year for further ev aluation. A letter with findings and recommendations will be mailed to the patient. Reading Location: [id number]
--- NOTE | 2025-02-17 09:56 | BI_ITS ---
EXAM: DIAG MAMM W/CAD, BILAT; BILAT BRST PARISA STAND ALONE 02/17/2025 CLINICAL HISTORY: 49-year-old female with history of right breast cancer, status post chemotherapy and radiation, currently on anastrozole presents for follow-up. History of benign left breast biopsy. TECHNIQUE: DIAG MAMM W/CAD, BILAT; BILAT BRST PARISA STAND ALONE. COMPARISON: Prior exam(s) dated 03/03/2024, 02/14/2024. FINDINGS: TISSUE DENSITY: There are scattered areas of fibroglandular density. Bilateral Breast Mammographic Findings: There are new postsurgical and post radiation changes, including diffuse right breast skin thickening and increased trabeculation, in the right breast. Otherwise, there are no suspicious findings in the right breast. There is a mass with associated biopsy marker clip in the upper-outer left breast. Otherwise, there are no suspicious findings in the left breast. BI/Bilat Brst [place] Stand Alone IMPRESSION: Postsurgical and post therapeutic changes in the right breast are benign. There is no evidence of malignancy in either breast. OVERALL FINAL ASSESSMENT BI-RADS 2: BENIGN RECOMMENDATION: OTHER. Bilateral diagnostic mammogram in 1 year for further ev aluation. A letter with findings and recommendations will be mailed to the patient. Reading Location: [id number]
== END | disposition home or self-care (01) ==
LOC: OPBI 08:54
PROVIDERS: Referring Provider Student in an Organized Health Care Education/Training Program; Visit Provider Student in an Organized Health Care Education/Training Program
DX: C50.411 Malignant neoplasm of upper-outer quadrant of right female breast (principal); Z17.0 Estrogen receptor positive status [ER+]
CPT/HCPCS: 77062; 77066; G0279